=== PATIENT | male | born 1980 | race Caucasian/White ===

== ENCOUNTER 2022-12-15 19:56 | Inpatient (IN) | payer BC ==
[~2022-12-15] VITALS: Ht 182.9 cm; Wt 93.2 kg
[2022-12-15 20:10] VITALS: BP 171/110
[2022-12-15 21:41] LABS: BILIRUBIN Negative (Negative); BLOOD Negative (Negative); CLARITY Clear (Clear); COLOR Yellow (Yellow); GLUCOSE Negative (Negative); KETONE Negative (Negative); LEUKO ESTERASE Negative (Negative); NITRITE Negative (Negative); UROBILINOGEN 0.2 E.U./dl (0.0-1.0)
[2022-12-15 21:58] LABS: BASO % 0.2 % (0.0-1.0); EOS # 0.1 10*3/uL (0.0-0.4); EOS % 0.6 % (1.0-4.0); HEMATOCRIT 42.2 % (42.0-52.0); LYMPH # 1.6 10*3/uL (1.3-4.4); LYMPH % 11.9 % (27.0-41.0); MEAN CELL VOLUME 90.9 fl (80.0-94.0); MEAN CORPUSCULAR HGB 32.1 pg (27.0-31.0); MEAN CORPUSCULAR HGB CONC 35.3 g/dl (33.0-37.0); MEAN PLATELET VOLUME 9.2 fl (9.6-12.3); MONO # 1.2 10*3/uL (0.1-1.0); MONO % 8.9 % (3.0-9.0); NEUT # 10.3 10*3/uL (2.3-7.9); PLATELET COUNT AUTOMATED 204 10*3/uL (130-400); RED BLOOD COUNT 4.64 10*6/uL (4.50-5.90); RED CELL DISTRI WIDTH 12.1 % (0-14.5); WHITE BLOOD COUNT 13.3 10*3/uL (4.8-10.8)
[2022-12-15 22:02] LABS: BACTERIA 1+; WBC 0-2 wbc/hpf (0-5)
[2022-12-15 22:07] LABS: BUN 13 mg/dl (9-23); CHLORIDE 100 mmol/L (98-107)
[2022-12-16] VITALS (7 sets, daily range): BP systolic 134–153; BP diastolic 75–90
[2022-12-16 02:50] LABS: BASO % 0.3 % (0.0-1.0); EOS # 0.1 10*3/uL (0.0-0.4); EOS % 1.1 % (1.0-4.0); HEMATOCRIT 41.4 % (42.0-52.0); LYMPH # 2.3 10*3/uL (1.3-4.4); LYMPH % 18.1 % (27.0-41.0); MEAN CELL VOLUME 89.8 fl (80.0-94.0); MEAN CORPUSCULAR HGB 32.1 pg (27.0-31.0); MEAN CORPUSCULAR HGB CONC 35.7 g/dl (33.0-37.0); MEAN PLATELET VOLUME 9.1 fl (9.6-12.3); MONO # 1.4 10*3/uL (0.1-1.0); MONO % 11.2 % (3.0-9.0); NEUT # 8.9 10*3/uL (2.3-7.9); NEUT % 69.1 % (47.0-73.0); PLATELET COUNT AUTOMATED 200 10*3/uL (130-400); RED BLOOD COUNT 4.61 10*6/uL (4.50-5.90); RED CELL DISTRI WIDTH 12.1 % (0-14.5); WHITE BLOOD COUNT 12.8 10*3/uL (4.8-10.8)
[2022-12-16 03:15] LABS: ALKALINE PHOSPHATASE 63 U/L (46-116); BUN 12 mg/dl (9-23); CHLORIDE 104 mmol/L (98-107); POTASSIUM 3.7 mmol/L (3.4-5.1); SGPT/ALT 24 U/L (10-49); TOTAL PROTEIN 6.9 gm/dL (6.0-8.0)
[2022-12-17] VITALS: BP 145/94
[2022-12-17 06:31] LABS: BUN 8 mg/dl (9-23); CHLORIDE 104 mmol/L (98-107); POTASSIUM 4.1 mmol/L (3.4-5.1)
[2022-12-17 06:37] LABS: BASO % 0.3 % (0.0-1.0); EOS # 0.2 10*3/uL (0.0-0.4); EOS % 1.3 % (1.0-4.0); HEMATOCRIT 44.1 % (42.0-52.0); LYMPH # 1.9 10*3/uL (1.3-4.4); LYMPH % 16.3 % (27.0-41.0); MEAN CELL VOLUME 92.6 fl (80.0-94.0); MEAN CORPUSCULAR HGB 31.5 pg (27.0-31.0); MEAN PLATELET VOLUME 9.3 fl (9.6-12.3); MONO # 0.9 10*3/uL (0.1-1.0); MONO % 7.8 % (3.0-9.0); NEUT # 8.5 10*3/uL (2.3-7.9); PLATELET COUNT AUTOMATED 203 10*3/uL (130-400); RED BLOOD COUNT 4.76 10*6/uL (4.50-5.90); RED CELL DISTRI WIDTH 12.2 % (0-14.5); WHITE BLOOD COUNT 11.5 10*3/uL (4.8-10.8)
[2022-12-17 08:00] VITALS: BP 113/68
[2022-12-17] MEDS ORDERED: AUGMENTIN 500500 M1 PO (09:27)
[2022-12-17] MEDS ORDERED: CIPROFLOXACIN500 M4 PO (09:27)
[2022-12-17] MEDS ORDERED: HYDROCODONE-AC1 EAC1 PO (09:27)
[2022-12-17 12:00] VITALS: BP 121/70
== END 2022-12-17 13:57 | disposition home or self-care (01) | DRG 872 ==
LOC: ED 19:56 → 4E 12-16 00:29 → EDHOLD 12-16 00:29 → 4E 12-16 00:42
PROVIDERS: Emergency Medicine; Internal Medicine; ADMIT Internal Medicine; ATTEND Internal Medicine
DX: A41.9 Sepsis, unspecified organism (principal); F10.139 Alcohol abuse with withdrawal, unspecified; K57.30 Diverticulosis of large intestine without perforation or abscess without bleeding; R73.9 Hyperglycemia, unspecified; F10.10 Alcohol abuse, uncomplicated; Z87.891 Personal history of nicotine dependence; Z81.1 Family history of alcohol abuse and dependence; Z82.49 Family history of ischemic heart disease and other diseases of the circulatory system

== ENCOUNTER → 2023-01-30 | Day surgery (SDC) | payer BC ==
[~2023-01-30] VITALS: Ht 182.8 cm; Wt 93.0 kg
[~2023-01-30] MED LIST: AUGMENTIN 500500 M1 PO; CIPROFLOXACIN500 M4 PO; HYDROCODONE-AC1 EAC1 PO
[2023-01-30 08:00] VITALS: BP 129/86
[2023-01-30 09:05] VITALS: BP 112/73
[2023-01-30 09:20] VITALS: BP 109/73
[2023-01-30 09:35] VITALS: BP 118/74
== END | disposition home or self-care (01) ==
LOC: SDC 01-27 14:00
PROVIDERS: ATTEND Surgery
DX: Z12.11 Encounter for screening for malignant neoplasm of colon (principal); K57.30 Diverticulosis of large intestine without perforation or abscess without bleeding; F17.210 Nicotine dependence, cigarettes, uncomplicated

== ENCOUNTER 2023-03-26 06:30 | Emergency (ER) | payer OTHER ==
[2023-03-26] MEDS ORDERED: ATORVASTATIN CA20 M1 PO (06:46)
[2023-03-26] MEDS ORDERED: PERCOCET 5-3251 EACH PO ×2 (08:55→08:57)
[2023-03-26] MEDS ORDERED: ONDANSETRON4 MG SL (09:18)
== END 2023-03-26 09:05 | disposition home or self-care (01) ==
LOC: ED 06:30
DX: S42.321A Displaced transverse fracture of shaft of humerus, right arm, initial encounter for closed fracture (principal); E78.00 Pure hypercholesterolemia, unspecified; Z87.891 Personal history of nicotine dependence; Z79.899 Other long term (current) drug therapy; V89.2XXA Person injured in unspecified motor-vehicle accident, traffic, initial encounter; Y93.89 Activity, other specified; Y92.89 Other specified places as the place of occurrence of the external cause; Y99.8 Other external cause status

== ENCOUNTER → 2023-04-02 | Day surgery (SDC) | payer OTHER, BC ==
[2023-04-01 14:28] LABS: BUN 13 mg/dl (9-23); CHLORIDE 105 mmol/L (98-107); POTASSIUM 4.3 mmol/L (3.4-5.1)
[~2023-04-02] VITALS: Ht 182.8 cm; Wt 97.5 kg
[~2023-04-02] MED LIST changes: +ATORVASTATIN CA20 M1 PO; +ONDANSETRON4 MG SL; +PERCOCET 5-3251 EACH PO
[2023-04-02 07:45] VITALS: BP 128/72
[2023-04-02 13:08] VITALS: BP 117/74
[2023-04-02 13:25] VITALS: BP 103/72
[2023-04-02 13:38] VITALS: BP 101/68
[2023-04-02 13:58] VITALS: BP 130/67
== END ==
LOC: LAB 03-16 00:01 → SDC 04-01 14:00 → EDSTATUS 14:00 → SDC 14:00
PROVIDERS: ATTEND Orthopaedic Surgery
DX: S42.321A Displaced transverse fracture of shaft of humerus, right arm, initial encounter for closed fracture (principal); E78.00 Pure hypercholesterolemia, unspecified; Z79.899 Other long term (current) drug therapy; Z98.818 Other dental procedure status; Z98.49 Cataract extraction status, unspecified eye; Z98.890 Other specified postprocedural states; X58.XXXA Exposure to other specified factors, initial encounter; Y92.89 Other specified places as the place of occurrence of the external cause; Y93.89 Activity, other specified; Y99.8 Other external cause status

== ENCOUNTER → 2023-04-13 | Outpatient (CLI) | payer BC, OTHER | END | disposition home or self-care (01) | LOC: ORTHO 02:22 | PROVIDERS: ATTEND Orthopaedic Surgery | DX: S42.321D Displaced transverse fracture of shaft of humerus, right arm, subsequent encounter for fracture with routine healing (principal); M79.641 Pain in right hand; X58.XXXD Exposure to other specified factors, subsequent encounter ==

== ENCOUNTER → 2023-05-06 | Outpatient (CLI) | payer BC, OTHER | END | disposition home or self-care (01) | LOC: ORTHO 01:10 | PROVIDERS: ATTEND Orthopaedic Surgery | DX: S42.321D Displaced transverse fracture of shaft of humerus, right arm, subsequent encounter for fracture with routine healing (principal); X58.XXXA Exposure to other specified factors, initial encounter ==

== ENCOUNTER → 2023-05-12 | Outpatient (CLI) | payer OTHER, BC | END | disposition home or self-care (01) | LOC: RAD 16:01 | PROVIDERS: ATTEND Orthopaedic Surgery | DX: S42.321D Displaced transverse fracture of shaft of humerus, right arm, subsequent encounter for fracture with routine healing (principal); X58.XXXD Exposure to other specified factors, subsequent encounter ==

== ENCOUNTER → 2023-06-17 | Outpatient (CLI) | payer BC, OTHER | END | disposition home or self-care (01) | LOC: RAD 01:16 | PROVIDERS: ATTEND Orthopaedic Surgery | DX: S42.321D Displaced transverse fracture of shaft of humerus, right arm, subsequent encounter for fracture with routine healing (principal); X58.XXXD Exposure to other specified factors, subsequent encounter ==

== ENCOUNTER → 2023-07-15 | Outpatient (CLI) | payer BC, OTHER | END | disposition home or self-care (01) | LOC: ORTHO 00:46 | PROVIDERS: ATTEND Orthopaedic Surgery | DX: S42.321D Displaced transverse fracture of shaft of humerus, right arm, subsequent encounter for fracture with routine healing (principal); X58.XXXD Exposure to other specified factors, subsequent encounter ==

== ENCOUNTER → 2023-08-12 | Outpatient (CLI) | payer BC, OTHER | END | disposition home or self-care (01) | LOC: ORTHO 01:43 | PROVIDERS: ATTEND Orthopaedic Surgery | DX: S42.321D Displaced transverse fracture of shaft of humerus, right arm, subsequent encounter for fracture with routine healing (principal); X58.XXXD Exposure to other specified factors, subsequent encounter ==

== ENCOUNTER → 2023-09-09 | Outpatient (CLI) | payer BC, OTHER | END | disposition home or self-care (01) | LOC: ORTHO 02:36 | PROVIDERS: ATTEND Orthopaedic Surgery | DX: S42.321D Displaced transverse fracture of shaft of humerus, right arm, subsequent encounter for fracture with routine healing (principal); X58.XXXD Exposure to other specified factors, subsequent encounter ==

== ENCOUNTER → 2023-11-23 | Outpatient (CLI) | payer BC, OTHER | END | disposition home or self-care (01) | LOC: ORTHO 00:28 | PROVIDERS: ATTEND Orthopaedic Surgery | DX: S42.321D Displaced transverse fracture of shaft of humerus, right arm, subsequent encounter for fracture with routine healing (principal); X58.XXXD Exposure to other specified factors, subsequent encounter ==

== ENCOUNTER → 2024-04-27 | Outpatient (CLI) | payer BC, OTHER | END | disposition home or self-care (01) | LOC: ORTHO 02:09 | PROVIDERS: ATTEND Orthopaedic Surgery | DX: S42.321D Displaced transverse fracture of shaft of humerus, right arm, subsequent encounter for fracture with routine healing (principal); M19.011 Primary osteoarthritis, right shoulder; X58.XXXD Exposure to other specified factors, subsequent encounter ==

== ENCOUNTER → 2024-09-14 | Outpatient (CLI) | payer BC ==
[~2024-09-14] MED LIST changes: +IOHEXOL 350 MG/ML 100 ML VIAL IV ONE; +SODIUM CHLORIDE 0.9% 100 ML BAG IV ONE
== END | disposition home or self-care (01) ==
LOC: CT 00:37
PROVIDERS: ATTEND Internal Medicine
DX: H54.7 Unspecified visual loss (principal)

== ENCOUNTER 2025-05-07 01:22 | Emergency (ER) | payer BC ==
[~2025-05-07] VITALS: Ht 182.8 cm; Wt 95.3 kg
[~2025-05-07 01:22] MED LIST changes: -IOHEXOL 350 MG/ML 100 ML VIAL IV ONE; -SODIUM CHLORIDE 0.9% 100 ML BAG IV ONE
[2025-05-07] MEDS ORDERED: NAPROSYN500 MG PO (02:18)
== END 2025-05-07 02:22 | disposition home or self-care (01) ==
LOC: ED 01:22
DX: S60.221A Contusion of right hand, initial encounter (principal); Z79.899 Other long term (current) drug therapy; Z87.891 Personal history of nicotine dependence; W17.89XA Other fall from one level to another, initial encounter; Y93.89 Activity, other specified; Y92.89 Other specified places as the place of occurrence of the external cause; Y99.8 Other external cause status